=== PATIENT | female | born 1960 | race Caucasian/White ===

== ENCOUNTER 2020-10-15 02:51 | Day surgery (SDC) | payer BC, SELFPAY ==
[2020-10-06 14:38] VITALS: BMI 31.5
[2020-10-15 06:27] VITALS: BP 131/83; PULSE 95; RESP 18; TEMP 36.3; O2SAT 95
[2020-10-15] MEDS: LACTATED RINGERS 1,000 ML 150 ML IV CONT (06:52)
--- NOTE | 2020-10-15 07:24 | WPDGICN ---
Assessment and Plan Assessment and plan (1) Family history of colon cancer in mother: Code(s): Z80.0 - Family history of malignant neoplasm of digestive organs Status: Acute Assessment and Plan: Patient's mother had colon cancer at age 39. Plan is for patient to have surveillance colonoscopy now and at least at every 5 year intervals in the future. GI Consult Note Consult date/time: 10/15/20 07:24 HPI: Corinne Nieto is a 60 year old female Presents for screening colonoscopy. Patient reports that her mother had colon cancer at age 39. Patient states that there are several other cancers within the family including gynecological cancers and pancreatic cancers. Patient reports that her own weight appetite bowel movements are normal. She denies abdominal pain. She has had no bleeding. Her last colonoscopy was 5 years ago. Review of Systems Review of Systems: All systems reviewed & are unremarkable except as noted in HPI and below PMFSH Past Medical History Medical History (Updated 10/15/20 @ 07:25 by Vishal Stevens MD) Essential (primary) hypertension GERD (gastroesophageal reflux disease) Mixed hyperlipidemia Family History Family History Mother Hypertension Family history of cardiovascular disease Carcinoma of colon Family history of malignant neoplasm of breast in first degree relative Father Diabetes mellitus Family history of cardiovascular disease Social History Social History Smoking status: Never smoker Alcohol intake: current Living arrangements: with family Spiritual care concerns: No Meds Home Medications and Allergies Home Medications Medication Instructions Recorded Confirmed Type pfkyslbuknxj-Vb-znve-minerals 18 1 tablet PO .qd tablet 03/20/19 10/15/20 History mg-0.4 mg tablet cholecalciferol (vitamin D3) 25 25 mcg PO DAILY #90 cap 07/16/20 10/15/20 Rx mcg (1,000 unit) capsule atorvastatin 10 mg PO DAILY 10/06/20 10/15/20 History losartan-hydrochlorothiazide 1 tablet PO DAILY 10/06/20 10/15/20 History omega-3 fatty acids [Fish Oil] 1,000 mg PO DAILY 10/06/20 10/15/20 History Allergies Allergy/AdvReac Type Severity Reaction Status Date / Time No Known Allergies Allergy Verified 10/06/20 14:36 Vital Signs Vital Signs - 24 hr 10/15/20 06:27 Pulse Rate 95 Respiratory Rate 18 Blood Pressure 131/83 Pulse Oximetry 95 Exam Narrative: Physical exam reveals patient be alert. Vital signs stable. HEENT exam is unremarkable. Patient is anicteric. Lungs are clear to auscultation and percussion. Heart is without murmur or extra sounds. Abdominal exam bowel sounds are present soft nontender with no organomegaly. Digital external rectal exam is normal.
--- NOTE | 2020-10-15 07:27 | WPDANESEPPF ---
Anes - Initial Pre Proc Eval Procedure: Operation Date: 10/15/20 08:00 Proposed Procedures p Screening Colonoscopy - Vishal Stevens MD Date/Time: 10/15/20 07:27 Surgeon: Vishal Stevens MD Pre Op Diagnosis: family hx of colon ca Patient Data Age: 60 Gender: F Height: 1.65 m Weight: 92.2 kg Last Vital Signs Pulse 95 10/15/20 06:27 Resp 18 10/15/20 06:27 BP 131/83 10/15/20 06:27 Pulse Ox 95 10/15/20 06:27 Allergies Allergy/AdvReac Type Severity Reaction Status Date / Time No Known Allergies Allergy Verified 10/06/20 14:36 Home Medications Medication Instructions Recorded Confirmed Type khmzynhwlnqn-Ed-apat-minerals 18 1 tablet PO .qd tablet 03/20/19 10/15/20 History mg-0.4 mg tablet cholecalciferol (vitamin D3) 25 25 mcg PO DAILY #90 cap 07/16/20 10/15/20 Rx mcg (1,000 unit) capsule atorvastatin 10 mg PO DAILY 10/06/20 10/15/20 History losartan-hydrochlorothiazide 1 tablet PO DAILY 10/06/20 10/15/20 History omega-3 fatty acids [Fish Oil] 1,000 mg PO DAILY 10/06/20 10/15/20 History Patient hx anesthesia problems: none Family hx anesthesia problems: none PMFSH Past Medical History Medical History (Updated 10/15/20 @ 07:25 by Vishal Stevens MD) Essential (primary) hypertension GERD (gastroesophageal reflux disease) Mixed hyperlipidemia Family History Family History Mother Hypertension Family history of cardiovascular disease Carcinoma of colon Family history of malignant neoplasm of breast in first degree relative Father Diabetes mellitus Family history of cardiovascular disease Social History Social History Smoking status: Never smoker Alcohol intake: current Living arrangements: with family Spiritual care concerns: No Anes - Eval Final PreProcedure Day of Procedure 10/15/20 07:27 Patient weight: obese Heart: regular rate and rhythm Lungs: clear to auscultation Airway: Mallampati scale class II Neurological: alert and oriented Last oral intake: >/= 8 hours ASA classification: III Emergent: no Anesthetic plan: proceed Anesthesia type and monitoring: general GIVS and standard monitoring Informed Consent: The patient's anesthetic plan and its attendant risks and benefits were discussed with the patient/family/POA. Questions were solicited and answers provided to the satisfaction of the patient/family/POA.
[2020-10-15 07:51] VITALS: BP 99/67; PULSE 87; RESP 18; O2SAT 94
[2020-10-15 08:01] VITALS: BP 101/69; PULSE 84; RESP 20; O2SAT 95
[2020-10-15 08:11] VITALS: BP 117/60; PULSE 86; RESP 18; O2SAT 98
== END 2020-10-15 08:21 | disposition home or self-care (01) ==
PROVIDERS: PCP Family Medicine; Visit Provider Internal Medicine Gastroenterology
PROC: 0DJD8ZZ Inspection of Lower Intestinal Tract, Via Natural or Artificial Opening Endoscopic (ICD-10-PCS; CPT 45378; principal; 2020-10-15 08:00)
DX: Z12.11 Encounter for screening for malignant neoplasm of colon (principal); Z80.0 Family history of malignant neoplasm of digestive organs; I10 Essential (primary) hypertension; E78.2 Mixed hyperlipidemia; K21.9 Gastro-esophageal reflux disease without esophagitis
CPT/HCPCS: 45378; J2704; J7120